=== PATIENT | male | born 1965 | race Caucasian/White ===

== ENCOUNTER 2020-11-14 16:34 | Emergency (ER) | payer SELFPAY ==
[~2020-11-14] VITALS: Ht 193 cm; Wt 109.0 kg
[2020-11-14 16:34] VITALS: BP 150/90
[2020-11-14] MEDS ORDERED: ALPRAZolam 0.25 MG TABLET ONE ×2 (17:08→17:10)
--- NOTE | 2020-11-14 17:14 | PHYS DOC ---
General Adult EDM: Chief Complaint: SUICIDAL IDEATION HPI: HPI: Patient is a 55-year-old male who presents after running out of psych medication. Patient states once he got here that he was suicidal. Patient unwilling to tell me what his suicidal plan is. Patient states he is out of his Effexor, Xanax, Seroquel. Patient denies having a PCP. Patient was prescribed these medications when he was inpatient at [facility]. Patient states that he is anxious and requesting Xanax. Denies history of anxiety, depression, bipolar disorder. (COMFORT SIERRA APRN) Review of Systems: Review of Systems: Respiratory: Denies cough or shortness of breath Cardiovascular: Denies chest pain or edema Psychiatric: Reports depression and anxiety (COMFORT SIERRA APRN) Current Medications: Current Meds: Current Medications Medications (Trade) Dose Ordered Sig/Anastasia Start Time Stop Time Status Last Admin Dose Admin Alprazolam (Xanax) 0.5 mg 1X ONCE 11/14/20 17:15 11/14/20 17:16 UNV (COMFORT SIERRA APRN) Allergies: Allergies: Allergies Coded Allergies Type Severity Reaction Last Updated Verified No Known Drug Allergies 11/14/20 No (COMFORT SIERRA APRN) Physical Exam: PE: Constitutional: Well developed, well nourished, no acute distress, non-toxic appearance. [] Cardiovascular:Heart rate regular rhythm, no murmur [] Lungs & Thorax: Bilateral breath sounds clear to auscultation [] Psychologic: Patient is agitated, angry, uncooperative (COMFORT SIERRA APRN) EKG: EKG: [] (COMFORT SIERRA APRN) Radiology/Procedures: Radiology/Procedures: [] (COMFORT SIERRA APRN) Heart Score: C/O Chest Pain: No Risk Factors: Risk Factors: DM, Current or recent (<one month) smoker, HTN, HLP, family history of CAD, obesity. Risk Scores: Score 0 - 3: 2.5% MACE over next 6 weeks - Discharge Home Score 4 - 6: 20.3% MACE over next 6 weeks - Admit for Clinical Observation Score 7 - 10: 72.7% MACE over next 6 weeks - Early Invasive Strategies (COMFORT SIERRA APRN) Course & Med Decision Making: Course & Med Decision Making Pertinent Labs and Imaging studies reviewed. (See chart for details) [] Patient is a 55-year-old male who is being seen in the emergency room for a med refill. Patient denies having a PCP for medications. Patient received his meds last when he was an inpatient psych facility. Patient is reporting that he is suicidal but refuses to explain what his suicidal plan is. Patient states "I always have a plan". Patient is requesting something for anxiety. Xanax given to help with anxiety. Sadie from the PAT team was consulted for a referral. Patient stating that he needs his Effexor, Xanax, Seroquel refilled. CBC, BMP, UDS, UA ordered for medical clearance. Patient given 0.5 Xanax. Patient still very agitated. 10 to Zyprexa given. Patient has calmed down. Patient spoke with Sadie and denying any SI. Patient reporting med refill only. Sadie recommended safety plan for patient and referral to guidance Center for counselor and medication refill. He is referred to PAT team notes. Patient is medically cleared. (COMFORT SIERRA APRN) Dragon Disclaimer: Dragon Disclaimer: This electronic medical record was generated, in whole or in part, using a voice recognition dictation system. (COMFORT SIERRA APRN) Attending Co-Sign The patient was seen and interviewed as well as examined at the bedside. The chart was reviewed. The case was discussed. Agree with the plan of care. (SUNNY GRADY DO) Departure Departure: Impression: Primary Impression: Medication refill Disposition: 01 HOME / SELF CARE / HOMELESS Condition: STABLE Patient Instructions: Anxiety and Panic Attacks, [id number] Additional Instructions: You are seen in the emergency room for a med refill and anxiety. You spoke with someone from our Pat team and came up with a safety plan. You need to follow- up with the guidance Center to refill your medications. EMERGENCY DEPARTMENT GENERAL DISCHARGE INSTRUCTIONS Thank you for coming to [facility] (ED) today and trusting us with you care. We trust that you had a positivie experience in our Emergency Department. If you wish to speak to the department management, you may call the director at [phone]. YOUR FOLLOW UP INSTRUCTIONS ARE FOLLOWS: 1. Do you have a private Doctor? If you do not have a private doctor, please ask for a resource list of physicians or clinics that may be able to assist you with follow up care. 2. The Emergency Physician has interpreted your x-rays. The X-Ray specialist will also review them. If there is a change in the findings, you will be notified in 48 hours when at all possible. 3. A lab test or culture has been done, your results will be reviewed and you will be notified if you need a change in treatment. ADDITIONAL INSTRUCTIONS AND INFORMATION: 1. Your care today has been supervised by a physician who is specially trained in emergency care. Many problems require more than one evaluation for a complete diagnosis and treatment. We recommend that you schedule your follow up appointment as recommended to ensure complete treatment of you illness or injury. If you are unable to obtain follow up care and continue to have a problem, or if your condition worsens, we recommend that you return to the ED. 2. We are not able to safely determine your condition over the phone nor are we able to give sound medical advice over the phone. For these safety reasons, if you call for medical advice we will ask you to come to the ED for further evaluation. 3. If you have any questions regarding these discharge instructions please call the ED at [phone]. SAFETY INFORMATION: In the interest of safety, wellness, and injury prevention; we encourage you to wear your sealbelt, if you smoke; quite smoking, and we encourage family to use a protective helmet for bicycling and other sporting events that present an increased risk for head injury. IF YOUR SYMPTOMS WORSEN OR NEW SYMPTOMS DEVELOP, OR YOU HAVE CONCERNS ABOUT YOUR CONDITION; OR IF YOUR CONDITION WORSENS WHILE YOU ARE WAITING FOR YOUR FOLLOW UP APPOINTMENT; EITHER CONTACT YOUR PRIMARY CARE DOCTOR, THE PHYSICIAN WHOSE NAME AND NUMBER YOU WERE GIVEN, OR RETURN TO THE ED IMMEDIATELY. . COMFORT SIERRA APRN November 14, 2020 17:14 SUNNY GRADY DO November 15, 2020 06:37
[2020-11-14] MEDS ORDERED: ALPRAZolam 0.25 MG TABLET PO ONE ×2 (17:15→18:30)
[2020-11-14 17:35] LABS: BARBITURATES NEG (NEG); BENZODIAZEPINES NEG (NEG); CANNABINOIDS POS (NEG); COCAINE NEG (NEG); METHADONE NEG (NEG); OPIATES NEG (NEG); PHENCYCLIDINE NEG (NEG)
[2020-11-14 17:39] LABS: AMPHETAMINE/METHAMPHETAMINE NEG (NEG)
[2020-11-14 17:55] LABS: CLARITY,URINE CLEAR; COLOR,URINE YELLOW
[2020-11-14 17:56] LABS: BILIRUBIN,URINE NEG (NEG); GLUCOSE,URINE NEG (NEG); NITRITE,URINE NEG (NEG); UROBILINOGEN,URINE 0.2 mg/dL (0.2 mg/dL)
[2020-11-14 17:57] LABS: BACTERIA,URINE 0 /HPF (0-FEW); RBC,URINE 0 /HPF (0-2); SQUAMOUS EPITHELIAL CELL,UR OCC /LPF; WBC,URINE 0 /HPF (0-4)
[2020-11-14] MEDS ORDERED: OLANZapine IM 10 MG VIAL. IM ONE (18:30)
== END 2020-11-14 19:25 | disposition home or self-care (01) ==
LOC: ER 16:34 → EEVIPCON 16:34 → ER 19:25
DX: F41.9 Anxiety disorder, unspecified (principal); F32.9 Major depressive disorder, single episode, unspecified; Z76.0 Encounter for issue of repeat prescription
CPT/HCPCS: 36415; 80307; 81001; 96372; 99283; J3490

== ENCOUNTER 2020-11-24 17:06 | Emergency (ER) | payer SELFPAY ==
[~2020-11-24] VITALS: Ht 193 cm; Wt 109.0 kg
[2020-11-24] MEDS ORDERED: OLANZapine IM 10 MG VIAL. IM ONE (17:30)
--- NOTE | 2020-11-24 18:41 | PHYS DOC ---
Past History Past Medical History: Anxiety, Bipolar, Depression Past Surgical History: No Surgical History Alcohol Use: Heavy Adult General Chief Complaint Chief Complaint: SUICIDAL IDEATION HPI HPI Patient is a 55-year-old homeless male with a past medical history for bipolar, anxiety, depression, previous suicidal ideations and attempts at suicide via overdose who presents to emergency department with a chief complaint of suicidal ideations. States that his been feeling anxious and depressed again having thoughts of wanting to be and was thinking about going out to get street drugs and overdose on them to accomplish this. States he did drink some alcohol today but did not go get any heroin or other drugs as his plan was. Denies any homicidal ideation or hallucinations. Denies any recent travel, traumas, fevers, chest pain, shortness of breath, abdominal pain, nausea, vomiting. Denies any numbness/weakness/tingling or any trouble ambulating. States that his goal is to be admitted to inpatient psychiatric facility for help. Review of Systems Review of Systems Constitutional: Denies fever or chills [] Eyes: Denies change in visual acuity, redness, or eye pain [] HENT: Denies nasal congestion or sore throat [] Respiratory: Denies cough or shortness of breath [] Cardiovascular: No additional information not addressed in HPI [] GI: Denies abdominal pain, nausea, vomiting, bloody stools or diarrhea [] : Denies dysuria or hematuria [] Musculoskeletal: Denies back pain or joint pain [] Integument: Denies rash or skin lesions [] Neurologic: Denies headache, focal weakness or sensory changes [] Endocrine: Denies polyuria or polydipsia [] All other systems were reviewed and found to be within normal limits, except as documented in this note. Current Medications Current Medications Current Medications Medications (Trade) Dose Ordered Sig/Anastasia Start Time Stop Time Status Last Admin Dose Admin Olanzapine (ZyPREXA IM) 10 mg 1X ONCE 11/24/20 17:30 11/24/20 17:31 DC 11/24/20 17:27 10 MG Allergies Allergies Allergies Coded Allergies Type Severity Reaction Last Updated Verified No Known Drug Allergies 11/14/20 No Physical Exam Physical Exam Constitutional: Well developed, well nourished, no acute distress, non-toxic appearance. [] HENT: Normocephalic, atraumatic, Eyes: conjunctiva normal, no discharge. [] Neck: Normal range of motion, no tenderness, supple, no stridor. [] Cardiovascular:Heart rate regular rhythm, no murmur [] Lungs & Thorax: Bilateral breath sounds clear to auscultation [] Abdomen: Bowel sounds normal, soft, no tenderness, no masses, no pulsatile masses. [] Skin: Warm, dry, no erythema, no rash. [] Back: No tenderness, no CVA tenderness. [] Extremities: No tenderness, no cyanosis, no clubbing, ROM intact, no edema. [] Neurologic: Alert and oriented X 3, normal motor function, normal sensory function, no focal deficits noted. [] Psychologic: Affect depressed but cooperative. Suicidal ideations with plans of overdose. Denies homicidal ideation. Denies hallucinations. Current Patient Data Vital Signs Vital Signs Date Time Temp Pulse Resp B/P (MAP) Pulse Ox O2 Delivery O2 Flow Rate FiO2 11/24/20 17:10 98.0 16 150/90 (110) 98 Room Air EKG EKG [] Radiology/Procedures Radiology/Procedures [] Heart Score C/O Chest Pain: No Risk Factors: Risk Factors: DM, Current or recent (<one month) smoker, HTN, HLP, family history of CAD, obesity. Risk Scores: Risk Factors: DM, Current or recent (<one month) smoker, HTN, HLP, family history of CAD, obesity. Course & Med Decision Making Course & Med Decision Making Patient is a 55-year-old male who presents with suicidal ideations and a plan of suicide by overdosing on street drugs Vital signs not concerning. Physical exam noted above. PAT team evaluated and felt patient was appropriate for admission to psychiatric facility. EKG and troponin not concerning. Laboratory analysis not concerning. Toxicology positive for cannabis and alcohol. Covid negative. Discussed all findings with patient and recommended admission to psychiatric facility for continued evaluation and treatment. Patient grateful, verbalized understanding and agreed with plan of transfer and admission. Dragon Disclaimer Dragon Disclaimer This electronic medical record was generated, in whole or in part, using a voice recognition dictation system. Departure Departure: Impression: Primary Impression: Suicidal ideation Disposition: [facility] Condition: GOOD Referrals: PCP,NO (PCP) FARZANA RICO MD November 24, 2020 18:41
[2020-11-24] MEDS ORDERED: IV RINGERS SOLUTION,LACTATED 1,000 ML IV ONE (18:45)
[2020-11-24 19:20] LABS: BASO # 0.1 x10^3/uL (0.0-0.2); BASO % 1 % (0-3); EOS # 0.2 x10^3/uL (0.0-0.7); EOS % 3 % (0-3); HEMATOCRIT 39.2 % (39.0-53.0); HEMOGLOBIN 13.2 g/dL (13.0-17.5); LYMPH # 1.9 x10^3/uL (1.0-4.8); LYMPH % 23 % (24-48); MEAN CORPUSCULAR HEMOGLOBIN 31 pg (25-35); MEAN CORPUSCULAR HGB CONC 34 g/dL (31-37); MEAN CORPUSCULAR VOLUME 93 fL (79-100); MONO # 0.9 x10^3/uL (0.0-1.1); MONO % 11 % (0-9); NEUT # 5.1 x10^3uL (1.8-7.7); NEUT % 62 % (31-73); PLATELET COUNT 230 x10^3/uL (140-400); RED BLOOD COUNT 4.23 x10^6/uL (4.30-5.70); RED CELL DISTRIBUTION WIDTH 13.6 % (11.5-14.5); WHITE BLOOD COUNT 8.2 x10^3/uL (4.0-11.0)
[2020-11-24 19:22] LABS: BILIRUBIN,URINE NEG (NEG); CLARITY,URINE CLEAR; COLOR,URINE STRAW; GLUCOSE,URINE NEG (NEG)
[2020-11-24 19:23] LABS: BACTERIA,URINE 0 /HPF (0-FEW); NITRITE,URINE NEG (NEG); RBC,URINE 0 /HPF (0-2); SQUAMOUS EPITHELIAL CELL,UR OCC /LPF; UROBILINOGEN,URINE 0.2 mg/dL (0.2 mg/dL); WBC,URINE 0 /HPF (0-4)
[2020-11-24 19:24] LABS: BARBITURATES NEG (NEG); BENZODIAZEPINES NEG (NEG); CANNABINOIDS POS (NEG); COCAINE NEG (NEG); METHADONE NEG (NEG); OPIATES NEG (NEG); PHENCYCLIDINE NEG (NEG)
[2020-11-24 19:26] LABS: CALCIUM 8.4 mg/dL (8.5-10.1); CREATININE 1.2 mg/dL (0.7-1.3); GFR 62.9; POTASSIUM 3.8 mmol/L (3.5-5.1)
[2020-11-24 19:28] LABS: ACETAMIN < 2.0 mcg/mL (10-30); AMPHETAMINE/METHAMPHETAMINE NEG (NEG); ETHANOL 223 mg/dL (0-10); SALIC < 2.8 mg/dL (2.8-20.0)
[2020-11-24 19:30] LABS: ALBUMIN 3.5 g/dL (3.4-5.0); ALBUMIN/GLOBULIN RATIO 1.1 (1.0-1.7); TOTAL BILIRUBIN 0.2 mg/dL (0.2-1.0); TOTAL PROTEIN 6.8 g/dL (6.4-8.2)
--- NOTE | 2020-11-24 19:51 | EKG ---
[facility] [address] [place] [address] Test Date: 2020-11-24 Test Time: 18:49:11 Pat Name: AVELINO JESSICA Department: Room: Gender: Tig Welder: GAVIN : 1965 Requested By: FARZANA RICO Order Number: [id number] Reading MD: Measurements Intervals [place] Rate: 81 P: 7 OR: 144 QRS: 48 QRSD: 94 T: 47 QT: 384 QTc: 447 Interpretive Statements SINUS RHYTHM NORMAL ECG RI6.02 No previous ECG available for comparison
[2020-11-24 22:50] VITALS: BP 96/52
== END 2020-11-24 22:50 ==
LOC: ER 17:06
DX: R45.851 Suicidal ideations (principal); F41.9 Anxiety disorder, unspecified; F31.9 Bipolar disorder, unspecified; Z59.0 Homelessness; Z20.822 Contact with and (suspected) exposure to COVID-19
CPT/HCPCS: 36415; 80053; 80307; 80329; 81001; 84484; 85025; 87426; 93005; 96360; 96372; 99285; C9803; G0480; J3490; J7120; U0003

== ENCOUNTER 2021-02-17 15:29 | Emergency (ER) | payer SELFPAY ==
[~2021-02-17] VITALS: Ht 193 cm; Wt 109.0 kg
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
[2021-02-17] MEDS ORDERED: LORazepam 1 MG TABLET PO ONE (15:45)
[2021-02-17 16:14] LABS: BASO # 0.1 x10^3/uL (0.0-0.2); BASO % 1 % (0-3); EOS # 0.2 x10^3/uL (0.0-0.7); EOS % 3 % (0-3); HEMATOCRIT 40.1 % (39.0-53.0); HEMOGLOBIN 13.6 g/dL (13.0-17.5); LYMPH # 2.3 x10^3/uL (1.0-4.8); LYMPH % 33 % (24-48); MEAN CORPUSCULAR HEMOGLOBIN 31 pg (25-35); MEAN CORPUSCULAR HGB CONC 34 g/dL (31-37); MEAN CORPUSCULAR VOLUME 90 fL (79-100); MONO # 0.7 x10^3/uL (0.0-1.1); MONO % 10 % (0-9); NEUT # 3.7 x10^3uL (1.8-7.7); NEUT % 52 % (31-73); PLATELET COUNT 264 x10^3/uL (140-400); RED BLOOD COUNT 4.45 x10^6/uL (4.30-5.70); RED CELL DISTRIBUTION WIDTH 12.9 % (11.5-14.5)
[2021-02-17 16:24] LABS: CALCIUM 8.8 mg/dL (8.5-10.1); CREATININE 1.1 mg/dL (0.7-1.3); GFR 69.2; POTASSIUM 4.4 mmol/L (3.5-5.1)
[2021-02-17 16:30] LABS: ALBUMIN 4.2 g/dL (3.4-5.0); ALBUMIN/GLOBULIN RATIO 1.4 (1.0-1.7); TOTAL BILIRUBIN 0.3 mg/dL (0.2-1.0); TOTAL PROTEIN 7.3 g/dL (6.4-8.2)
[2021-02-17 16:35] LABS: ACETAMIN < 2 mcg/mL (10-30); ETHANOL 273 mg/dL (0-10); SALIC < 2.8 mg/dL (2.8-20.0)
[2021-02-17 16:38] LABS: INFLUENZA A PATIENT NEGATIVE (NEGATIVE); INFLUENZA B PATIENT NEGATIVE (NEGATIVE)
[2021-02-17 16:43] LABS: BARBITURATES NEG (NEG); BENZODIAZEPINES NEG (NEG); CANNABINOIDS NEG (NEG); COCAINE NEG (NEG); METHADONE NEG (NEG); OPIATES NEG (NEG); PHENCYCLIDINE NEG (NEG)
[2021-02-17 16:44] LABS: AMPHETAMINE/METHAMPHETAMINE NEG (NEG)
[2021-02-17 23:40] VITALS: BP 112/68
[2021-02-18] MEDS ORDERED: OLANZapine IM 10 MG VIAL. IM ONE (00:30)
== END 2021-02-17 23:48 | disposition home or self-care (01) ==
LOC: ER 15:29
DX: R45.851 Suicidal ideations (principal); F10.129 Alcohol abuse with intoxication, unspecified; F41.9 Anxiety disorder, unspecified; F31.9 Bipolar disorder, unspecified; Z20.822 Contact with and (suspected) exposure to COVID-19; Y90.8 Blood alcohol level of 240 mg/100 ml or more
CPT/HCPCS: 36415; 80053; 80307; 80329; 82947; 85025; 87804; 99285; C9803; G0480; U0003

== ENCOUNTER 2021-02-22 17:21 | Emergency (ER) | payer SELFPAY ==
[~2021-02-22] VITALS: Ht 193 cm; Wt 109.0 kg
--- NOTE | 2021-02-22 17:29 | PHYS DOC ---
Past History Past Medical History: Anxiety, Bipolar, Depression (BLAKE HIDALGO APRN) Past Surgical History: No Surgical History (BLAKE HIDALGO APRN) Alcohol Use: Heavy (BLAKE HIDALGO APRN) General Adult EDM: Chief Complaint: SUICIDAL IDEATION HPI: HPI: She is a 56-year-old male who presents to the ER for suicidal ideation. Patient has a plan to overdose on heroin. Patient reports he is not actively use heroin but has in the past. Patient has a history of depression, bipolar, anxiety. He takes Seroquel and Lexapro. He states that those do not improve his symptoms. He follows up outpatient with [facility]. Patient has attempted to kill himself twice in the past by overdose. Patient reports recent stressors of having to take care of his daughters. Patient denies any current drug use but reports drinking 2 beers today. (BLAKE HIDALGO APRN) Review of Systems: Review of Systems: 14 body systems of the review of systems have been reviewed. See HPI for pertinent positive and negative responses, otherwise all other systems are negative, nonpertinent or noncontributory (BLAKE HIDALGO APRN) Allergies: Allergies: Allergies Coded Allergies Type Severity Reaction Last Updated Verified No Known Drug Allergies 11/14/20 No (BLAKE HIDALGO APRN) Physical Exam: PE: Constitutional: Well developed, well nourished, no acute distress, non-toxic appearance. [] HENT: Normocephalic, atraumatic Eyes: PERRL, EOMI, conjunctiva normal, no discharge. [] Neck: Normal range of motion, no tenderness, supple, no stridor. [] Cardiovascular:Heart rate regular rhythm, no murmur [] Lungs & Thorax: Bilateral breath sounds clear to auscultation [] Abdomen: Bowel sounds normal, soft, no tenderness, no masses, no pulsatile masses. [] Skin: Warm, dry, no erythema, no rash. [] Back: Normal range of motion Extremities: No tenderness, no cyanosis, no clubbing, ROM intact, no edema. [] Neurologic: Alert and oriented X 3, normal motor function, normal sensory function, no focal deficits noted. [] Psychologic: Affect normal, judgement normal, emotionally upset. (BLAKE HIDALGO APRN) Current Patient Data: Labs: Laboratory Tests Test 02/22/21 17:38 02/22/21 17:39 02/22/21 17:42 White Blood Count 6.7 x10^3/uL Red Blood Count 4.72 x10^6/uL Hemoglobin 14.6 g/dL Hematocrit 42.6 % Mean Corpuscular Volume 90 fL Mean Corpuscular Hemoglobin 31 pg Mean Corpuscular Hemoglobin Concent 34 g/dL Red Cell Distribution Width 13.1 % Platelet Count 284 x10^3/uL Neutrophils (%) (Auto) 51 % Lymphocytes (%) (Auto) 30 % Monocytes (%) (Auto) 14 % Eosinophils (%) (Auto) 3 % Basophils (%) (Auto) 2 % Neutrophils # (Auto) 3.4 x10^3uL Lymphocytes # (Auto) 2.0 x10^3/uL Monocytes # (Auto) 1.0 x10^3/uL Eosinophils # (Auto) 0.2 x10^3/uL Basophils # (Auto) 0.1 x10^3/uL Sodium Level 136 mmol/L Potassium Level 4.1 mmol/L Chloride Level 100 mmol/L Carbon Dioxide Level 29 mmol/L Anion Gap 7 Blood Urea Nitrogen 19 mg/dL Creatinine 1.2 mg/dL Estimated GFR (Cockcroft-Gault) 62.6 BUN/Creatinine Ratio 16 Glucose Level 85 mg/dL Calcium Level 8.7 mg/dL Total Bilirubin 0.3 mg/dL Aspartate Amino Transf (AST/SGOT) 21 U/L Alanine Aminotransferase (ALT/SGPT) 26 U/L Alkaline Phosphatase 72 U/L Total Protein 7.8 g/dL Albumin 4.3 g/dL Albumin/Globulin Ratio 1.2 Ethyl Alcohol Level 230 mg/dL SARS-CoV-2 Antigen (Rapid) Negative Urine Collection Type Unknown Urine Color Yellow Urine Clarity Clear Urine pH 5.5 Urine Specific [place] 1.015 Urine Protein Neg Urine Glucose (UA) Neg mg/dL Urine Ketones (Stick) Neg mg/dL Urine Blood Trace Urine Nitrite Neg Urine Bilirubin Neg Urine Urobilinogen Dipstick 0.2 mg/dL Urine Leukocyte Esterase Neg Urine RBC Occ /HPF Urine WBC Occ /HPF Urine Squamous Epithelial Cells Few /LPF Urine Bacteria 0 /HPF Urine Opiates Screen Neg Urine Methadone Screen Neg Urine Barbiturates Neg Urine Phencyclidine Screen Neg Urine Amphetamine/Methamphetamine Neg Urine Benzodiazepines Screen Neg Urine Cocaine Screen Neg Urine Cannabinoids Screen Neg Urine Ethyl Alcohol Pos Current Medications Medications (Trade) Dose Ordered Sig/Anastasia Route PRN Reason Start Time Stop Time Status Last Admin Dose Admin Lorazepam (Ativan) 2 mg 1X ONCE PO 02/22/21 18:15 02/22/21 18:16 DC 02/22/21 18:18 Sodium Chloride 1,000 ml @ 1,000 mls/hr 1X ONCE IV 02/22/21 20:30 02/22/21 21:29 DC (BLAKE HIDALGO APRN) EKG: EKG: [] (BLAKE HIDALGO APRN) Radiology/Procedures: Radiology/Procedures: [] (BLAKE HIDALGO APRN) Heart Score: C/O Chest Pain: No Risk Factors: Risk Factors: DM, Current or recent (<one month) smoker, HTN, HLP, family history of CAD, obesity. Risk Scores: Score 0 - 3: 2.5% MACE over next 6 weeks - Discharge Home Score 4 - 6: 20.3% MACE over next 6 weeks - Admit for Clinical Observation Score 7 - 10: 72.7% MACE over next 6 weeks - Early Invasive Strategies (BLAKE HIDALGO APRN) Course & Med Decision Making: Course & Med Decision Making Pertinent Labs and Imaging studies reviewed. (See chart for details) Patient is a 56-year-old male being seen in the ER for suicidal ideation. Medical clearance in the ER consisted of blood work and urinalysis. Patient to be evaluated by the psychiatric assessment team. 1805: Patient began to be agitated and is requesting some medication for an xiety. Ativan ordered for patient. 2154: Psychiatric assessment team at patient's bedside. We are currently awaiting potential placement at [facility]. Discussed patient's case with Dr. Rico and he requests inpatient care at this time. (BLAKE HIDALGO APRN) Course & Med Decision Making Did not see or evaluate patient. Agree with AXLE POLISHER's work-up and disposition per note. (FARZANA RICO MD) Dragon Disclaimer: Dragon Disclaimer: This electronic medical record was generated, in whole or in part, using a voice recognition dictation system. (BLAKE HIDALGO APRN) Departure Departure: Referrals: PCP,NO (PCP) BLAKE HIDALGO APRN Feb 22, 2021 17:29 FARZANA RICO MD Feb 22, 2021 22:32
[2021-02-22 18:09] LABS: BASO # 0.1 x10^3/uL (0.0-0.2); BASO % 2 % (0-3); EOS # 0.2 x10^3/uL (0.0-0.7); EOS % 3 % (0-3); HEMATOCRIT 42.6 % (39.0-53.0); HEMOGLOBIN 14.6 g/dL (13.0-17.5); LYMPH % 30 % (24-48); MEAN CORPUSCULAR HEMOGLOBIN 31 pg (25-35); MEAN CORPUSCULAR HGB CONC 34 g/dL (31-37); MEAN CORPUSCULAR VOLUME 90 fL (79-100); MONO % 14 % (0-9); NEUT # 3.4 x10^3uL (1.8-7.7); NEUT % 51 % (31-73); PLATELET COUNT 284 x10^3/uL (140-400); RED BLOOD COUNT 4.72 x10^6/uL (4.30-5.70); RED CELL DISTRIBUTION WIDTH 13.1 % (11.5-14.5); WHITE BLOOD COUNT 6.7 x10^3/uL (4.0-11.0)
[2021-02-22] MEDS ORDERED: LORazepam 1 MG TABLET PO ONE (18:15)
[2021-02-22 18:22] LABS: CALCIUM 8.7 mg/dL (8.5-10.1); CREATININE 1.2 mg/dL (0.7-1.3); GFR 62.6; POTASSIUM 4.1 mmol/L (3.5-5.1)
[2021-02-22 18:24] LABS: BARBITURATES NEG (NEG); BENZODIAZEPINES NEG (NEG); CANNABINOIDS NEG (NEG); COCAINE NEG (NEG); METHADONE NEG (NEG); OPIATES NEG (NEG); PHENCYCLIDINE NEG (NEG)
[2021-02-22 18:26] LABS: AMPHETAMINE/METHAMPHETAMINE NEG (NEG)
[2021-02-22 18:28] LABS: ALBUMIN 4.3 g/dL (3.4-5.0); ALBUMIN/GLOBULIN RATIO 1.2 (1.0-1.7); TOTAL BILIRUBIN 0.3 mg/dL (0.2-1.0); TOTAL PROTEIN 7.8 g/dL (6.4-8.2)
[2021-02-22 19:04] LABS: BACTERIA,URINE 0 /HPF (0-FEW); BILIRUBIN,URINE NEG (NEG); CLARITY,URINE CLEAR; COLOR,URINE YELLOW; GLUCOSE,URINE NEG (NEG); NITRITE,URINE NEG (NEG); RBC,URINE OCC /HPF (0-2); SQUAMOUS EPITHELIAL CELL,UR FEW /LPF; UROBILINOGEN,URINE 0.2 mg/dL (0.2 mg/dL); WBC,URINE OCC /HPF (0-4)
[2021-02-22] MEDS ORDERED: IV NORMAL SALINE 1,000ML 1,000 ML IV ONE (20:30)
[2021-02-22] MEDS ORDERED: MIDAZOLAM HCL PF 5 MG/5 ML VIAL. IV ONE (22:15)
[2021-02-22] MEDS ORDERED: IV DEXTROSE 5% - 0.9 % NACL 1,000 ML IV ONE (22:15)
[2021-02-23 00:51] VITALS: BP 129/70
== END 2021-02-23 02:00 ==
LOC: ER 17:21
DX: T40.1X2A Poisoning by heroin, intentional self-harm, initial encounter (principal); R45.851 Suicidal ideations; F31.9 Bipolar disorder, unspecified; F41.9 Anxiety disorder, unspecified; Z20.822 Contact with and (suspected) exposure to COVID-19; Y92.9 Unspecified place or not applicable
CPT/HCPCS: 36415; 80053; 80307; 81001; 85025; 87426; 96360; 96361; 99285; C9803; G0480; J7042; U0003

== ENCOUNTER 2021-03-04 14:35 | Emergency (ER) | payer SELFPAY ==
[~2021-03-04] VITALS: Ht 193 cm; Wt 109.0 kg
[2021-03-04 14:43] VITALS: BP 106/73
[2021-03-04] MEDS ORDERED: CYCLOBENZAPRINE 10 MG TABLET. PO ONE (15:00)
[2021-03-04] MEDS ORDERED: LORazepam 1 MG TABLET PO ONE (15:00)
[2021-03-04] MEDS ORDERED: KETOROLAC 15 MG/ML VIAL. IM ONE (15:00)
--- NOTE | 2021-03-04 15:06 | PHYS DOC ---
Past History Past Medical History: Anxiety, Bipolar, Depression (COMFORT SIERRA APRN) Past Surgical History: No Surgical History (COMFORT SIERRA APRN) Alcohol Use: Heavy (COMFORT SIERRA APRN) General Adult EDM: Chief Complaint: BACK PAIN - NO INJURY HPI: HPI: Patient is a 56-year-old male presents with chronic back pain and anxiety. Patient states that he was prescribed lorazepam for his anxiety and hydrocodone for his back pain. Patient is requesting have medication refills. Patient does not have a PCP he sees. Patient denies injury. Denies urinary retention or loss of bowel. Patient has history of anxiety, depression, bipolar disorder. (COMFORT SIERRA APRN) Review of Systems: Review of Systems: Constitutional: Denies fever or chills Eyes: Denies change in visual acuity HENT: Denies nasal congestion or sore throat Respiratory: Denies cough or shortness of breath Cardiovascular: Denies chest pain or edema GI: Denies abdominal pain, nausea, vomiting, bloody stools or diarrhea : Denies dysuria Musculoskeletal: Reports chronic lower back pain Integument: Denies rash Neurologic: Denies headache, focal weakness or sensory changes Endocrine: Denies polyuria or polydipsia Lymphatic: Denies swollen glands Psychiatric: Denies depression or anxiety (COMFORT SIERRA APRN) Current Medications: Current Meds: Current Medications Medications (Trade) Dose Ordered Sig/Anastasia Start Time Stop Time Status Last Admin Dose Admin Cyclobenzaprine HCl (Flexeril) 10 mg 1X ONCE 03/04/21 15:00 03/04/21 15:01 UNV Ketorolac Tromethamine (Toradol 15mg Vial) 15 mg 1X ONCE 03/04/21 15:00 03/04/21 15:01 UNV Lorazepam (Ativan) 1 mg 1X ONCE 03/04/21 15:00 03/04/21 15:01 UNV (COMFORT SIERRA APRN) Allergies: Allergies: Allergies Coded Allergies Type Severity Reaction Last Updated Verified No Known Drug Allergies 11/14/20 No (COMFORT SIERRA APRN) Physical Exam: PE: Constitutional: Well developed, well nourished, no acute distress, non-toxic appearance. [] HENT: Normocephalic, atraumatic, bilateral external ears normal, oropharynx moist, no oral exudates, nose normal. [] Eyes: PERRLA, EOMI, conjunctiva normal, no discharge. [] Neck: Normal range of motion, no tenderness, supple, no stridor. [] Cardiovascular:Heart rate regular rhythm, no murmur [] Lungs & Thorax: Bilateral breath sounds clear to auscultation [] Abdomen: Bowel sounds normal, soft, no tenderness, no masses, no pulsatile masses. [] Skin: Warm, dry, no erythema, no rash. [] Back: Lower back tenderness, no CVA tenderness. [] Extremities: No tenderness, no cyanosis, no clubbing, ROM intact, no edema. [] Neurologic: Alert and oriented X 3, normal motor function, normal sensory function, no focal deficits noted. [] Psychologic: Affect normal, judgement normal, mood normal. [] (COMFORT SIERRA APRN) Current Patient Data: Vital Signs: Vital Signs Date Time Temp Pulse Resp B/P (MAP) Pulse Ox O2 Delivery O2 Flow Rate FiO2 03/04/21 14:43 98.5 82 16 106/73 97 Room Air (COMFORT SIERRA APRN) EKG: EKG: [] (COMFORT SIERRA APRN) Radiology/Procedures: Radiology/Procedures: [] (COMFORT SIERRA APRN) Heart Score: C/O Chest Pain: No Risk Factors: Risk Factors: DM, Current or recent (<one month) smoker, HTN, HLP, family history of CAD, obesity. Risk Scores: Score 0 - 3: 2.5% MACE over next 6 weeks - Discharge Home Score 4 - 6: 20.3% MACE over next 6 weeks - Admit for Clinical Observation Score 7 - 10: 72.7% MACE over next 6 weeks - Early Invasive Strategies (COMFORT SIERRA APRN) Course & Med Decision Making: Course & Med Decision Making Pertinent Labs and Imaging studies reviewed. (See chart for details) [] 56-year-old male presents with chronic back pain and anxiety. Patient is being seen for pain and also requesting medication refill. Explained to patient that I am not able to give him medication refills on his lorazepam and hydrocodone. Patient will need to follow-up with PCP. Patient states he does not have a PCP and is requesting a referral. Patient was given 1 mg of lorazepam while in the emergency room, Flexeril, IM Toradol for back pain. Patient given Dr. Dalton referral. Patient states he understands and is okay with discharge plan. Patient is hemodynamically stable and able to ambulate. (COMFORT SIERRA APRN) Jose Alejandro Disclaimer: Jose Alejandro Disclaimer: This electronic medical record was generated, in whole or in part, using a voice recognition dictation system. (COMFORT SIERRA APRN) Attending Co-Sign The patient was seen and interviewed as well as examined at the bedside. The chart was reviewed. The case was discussed. Agree with the plan of care. (SUNNY GRADY DO) Departure Departure: Impression: Primary Impression: Back pain, chronic Qualified Codes: M54.5 - Low back pain; G89.29 - Other chronic pain Additional Impression: Anxiety Disposition: 01 HOME / SELF CARE / HOMELESS Condition: STABLE Referrals: PCP,NO (PCP) Patient Instructions: Anxiety and Panic Attacks, [id number], Back Pain, Adult Additional Instructions: You were seen in the emergency room for chronic back pain and anxiety. You were given medication while in the ER to treat anxiety and pain. You were requesting medication refills on your hydrocodone and lorazepam. We are unable to do medication refills in the emergency room. I am providing you with contact information for PCPs you can establish relationships with. Return to the emergency room if you have worsening symptoms or concerns EMERGENCY DEPARTMENT GENERAL DISCHARGE INSTRUCTIONS Thank you for coming to [facility] (ED) today and trusting us with you care. We trust that you had a positivie experience in our Emergency Department. If you wish to speak to the department management, you may call the director at [phone]. YOUR FOLLOW UP INSTRUCTIONS ARE FOLLOWS: 1. Do you have a private Doctor? If you do not have a private doctor, please ask for a resource list of physicians or clinics that may be able to assist you with follow up care. 2. The Emergency Physician has interpreted your x-rays. The X-Ray specialist will also review them. If there is a change in the findings, you will be notified in 48 h ours when at all possible. 3. A lab test or culture has been done, your results will be reviewed and you will be notified if you need a change in treatment. ADDITIONAL INSTRUCTIONS AND INFORMATION: 1. Your care today has been supervised by a physician who is specially trained in emergency care. Many problems require more than one evaluation for a complete diagnosis and treatment. We recommend that you schedule your follow up appointment as recommended to ensure complete treatment of you illness or injury. If you are unable to obtain follow up care and continue to have a problem, or if your condition worsens, we recommend that you return to the ED. 2. We are not able to safely determine your condition over the phone nor are we able to give sound medical advice over the phone. For these safety reasons, if you call for medical advice we will ask you to come to the ED for further evaluation. 3. If you have any questions regarding these discharge instructions please call the ED at [phone]. SAFETY INFORMATION: In the interest of safety, wellness, and injury prevention; we encourage you to wear your sealbelt, if you smoke; quite smoking, and we encourage family to use a protective helmet for bicycling and other sporting events that present an increased risk for head injury. IF YOUR SYMPTOMS WORSEN OR NEW SYMPTOMS DEVELOP, OR YOU HAVE CONCERNS ABOUT YOUR CONDITION; OR IF YOUR CONDITION WORSENS WHILE YOU ARE WAITING FOR YOUR FOLLOW UP APPOINTMENT; EITHER CONTACT YOUR PRIMARY CARE DOCTOR, THE PHYSICIAN WHOSE NAME AND NUMBER YOU WERE GIVEN, OR RETURN TO THE ED IMMEDIATELY. COMFORT SIERRA APRN Mar 04, 2021 15:06 SUNNY GRADY DO Mar 06, 2021 06:27
== END 2021-03-04 15:22 | disposition home or self-care (01) ==
LOC: ER 14:35
DX: M54.5 Low back pain (principal); G89.29 Other chronic pain; F41.9 Anxiety disorder, unspecified; F31.9 Bipolar disorder, unspecified; F10.20 Alcohol dependence, uncomplicated; Y90.9 Presence of alcohol in blood, level not specified
CPT/HCPCS: 96372; 99283; J1885

== ENCOUNTER 2021-06-30 13:21 | Emergency (ER) | payer SELFPAY ==
[~2021-06-30] VITALS: Ht 193 cm; Wt 109.0 kg
[2021-06-30 13:23] VITALS: BP 126/73
--- NOTE | 2021-06-30 13:43 | PHYS DOC ---
Past History Past Medical History: Anxiety, Bipolar, Depression Past Surgical History: No Surgical History Alcohol Use: Heavy Adult General Chief Complaint Chief Complaint: BACK PAIN OR INJURY HPI HPI Patient is a 56-year-old male presents to the emergency department via EMS for ongoing chronic back pain. Patient reports he has not been given prescriptions for hydrocodone and requires something stronger for his back pain. Patient denies numbness or tingling to his genitals or bowels, denies loss of bowel/bladder continence, denies urinary retention, denies history of IV drug use, immunosuppression, cancers, or acute injury to back. Patient states he needs to be treated immediately. Patient denies other physical complaints or physical concerns. Review of Systems Review of Systems 14 body systems of review of systems have been reviewed. See HPI for pertinent positives and negative responses, otherwise all other systems are negative, nonpertinent or noncontributory. Constitutional: Negative except as outlined in HPI above. Skin: Negative except as outlined in HPI above. Eyes: Negative except as outlined in HPI above. HENT: Negative except as outlined in HPI above. Respiratory: Negative except as outlined in HPI above. Cardiovascular: Negative except as outlined in HPI above. GI: Negative except as outlined in HPI above. : Negative except as outlined in HPI above. Musculoskeletal: Negative except as outlined in HPI above. Integument: Negative except as outlined in HPI above. Neurologic: Negative except as outlined in HPI above. Endocrine: Negative except as outlined in HPI above. Lymphatic: Negative except as outlined in HPI above. Psychiatric: Negative except as outlined in HPI above. Allergies Allergies Allergies Coded Allergies Type Severity Reaction Last Updated Verified No Known Drug Allergies 11/14/20 No Physical Exam Physical Exam Constitutional: Well developed, well nourished, no acute distress, non-toxic appearance. 56-year-old male in no apparent distress. HENT: Normocephalic, atraumatic. Eyes: Conjunctiva normal, no discharge. Neck: Normal range of motion, no stridor. Cardiovascular: No cyanosis appreciated, distal cap refill less than 2 seconds. Lungs & Thorax: Patient is in no respiratory distress, no audible adventitious lung sounds appreciated. Abdomen: Nontender, no abnormalities noted. Skin: Warm, dry, no erythema, no rash. Back: Tenderness to lumbar muscular structures, no deformities appreciated. Extremities: No tenderness, no cyanosis, no clubbing, ROM intact, no edema. Neurologic: Alert and oriented X 3, normal motor function, normal sensory function, no focal deficits noted. Psychologic: Affect agitated, judgement normal, mood agitated. Current Patient Data Vital Signs Vital Signs Date Time Temp Pulse Resp B/P (MAP) Pulse Ox O2 Delivery O2 Flow Rate FiO2 06/30/21 13:23 98.0 126/73 (90) 98 EKG EKG [] Radiology/Procedures Radiology/Procedures [] Heart Score C/O Chest Pain: No Risk Factors: Risk Factors: DM, Current or recent (<one month) smoker, HTN, HLP, family history of CAD, obesity. Risk Scores: Risk Factors: DM, Current or recent (<one month) smoker, HTN, HLP, family history of CAD, obesity. Course & Med Decision Making Course & Med Decision Making Pertinent Labs and Imaging studies reviewed. (See chart for details) 56-year-old male, vital signs reviewed, presents to the emergency department concerning chronic low back pain seeking narcotic pain medication. Physical examination consistent with chronic low back pain syndrome, patient being verbally abusive towards ED staff, patient states "you better fucking treat me and give me pain medication or transfer me " Discussed with patient will give IM injection Toradol, 1 p.o. Flexeril, patient reports "that wont fucking do anything, I am not stupid ". Discussed with patient will not give narcotic pain medications for chronic back pains, follow-up with pain management or primary care for ongoing pain management. Patient is yelling at ED nursing staff, reviewed discharge instructions with patient, patient became verbally abusive and cussing at myself, security at bedside, local PD called to escort patient off premises. For physical examination, and patient presentation, patient is not suffering from an acute medical emergency, currently has intact 5/5 motor strength with hip flexion, knee flexion,extension, knee adduction, plantar/dorsiflexion at the ankle, and dorsiflexion of the toe bilaterally. Additionally there was no hx of IVDU, Immunosuppression, cancer, fever/chills, saddle anesthesia, bowel/bladder incontinence/retention, or trauma that would necessitate emergent imaging. Patient is nonreceptive to ED discharge planning, continues to cuss at myself and ED staff. Dragon Disclaimer Dragon Disclaimer This electronic medical record was generated, in whole or in part, using a voice recognition dictation system. Departure Departure: Impression: Primary Impression: Chronic back pain Disposition: HOME / SELF CARE / HOMELESS Condition: GOOD Referrals: PCP,NO (PCP) Patient Instructions: Back Pain, Adult Additional Instructions: You were seen today in the emergency department for chronic low back pain. You were treated today with ibuprofen and Flexeril. I encourage you to follow-up with your primary care provider for ongoing back pain evaluation and treatment. If you do not have a primary care provider you may consider using the [facility] located at [address] [place] [address] [address] [place] [address], their telephone number is area code [phone]. I also strongly encourage you to follow-up with a pain management physician, you may consider using Dr. Rah Londono located at [address] [facility] [address], [facility], [address], his office telephone number is area code [phone]. Please call today or very soon for the soonest appointment for evaluation and treatment. Thank you for visiting our Emergency Department. It was a pleasure taking care of you today in the emergency department and we appreciate you trusting us with your care. If any additional problems come up don't hesitate to return to visit us. Please follow up with your primary care provider so they can plan additional care if needed and know about the problem that you had. If symptoms worsen come back to the Emergency Department. Any concerning symptoms that start such as chest pain, shortness of air, weakness or numbness on one side of the body, running high fevers or any other concerning symptoms return to the ER. Problem Qualifiers Primary Impression: Chronic back pain Back pain location: low back pain Back pain laterality: bilateral Sciatica presence: without sciatica Qualified Codes: M54.50 - Low back pain, unspecified; G89.29 - Other chronic pain AVELINO MENDOZA APRN Jun 30, 2021 13:43
[2021-06-30] MEDS ORDERED: CYCLOBENZAPRINE 10 MG TABLET. PO ONE (13:45)
[2021-06-30] MEDS ORDERED: IBUPROFEN 600 MG TABLET. PO ONE (13:45)
== END 2021-06-30 14:12 | disposition home or self-care (01) ==
LOC: ER 13:21
DX: G89.29 Other chronic pain (principal); M54.89 Other dorsalgia; F31.9 Bipolar disorder, unspecified; F41.9 Anxiety disorder, unspecified; F10.20 Alcohol dependence, uncomplicated; Y90.9 Presence of alcohol in blood, level not specified
CPT/HCPCS: 99283